=== PATIENT | female | born 2000 | race Caucasian/White ===

== ENCOUNTER 2018-12-30 19:18 | Observation (INO) | payer MEDICAID, SELFPAY ==
[2018-12-30 19:19] VITALS: BP 119/71; PULSE 90; RESP 18; TEMP 36.7; O2SAT 98; BMI 23.2
--- NOTE | 2018-12-30 19:46 | ED.VIS.GEN ---
History of Present Illness Chief Complaint: Abd Pain Informant: Patient, Family Onset: Today Context: Gradual Onset Current Severity: Moderate Maximum Severity: Moderate Narrative: Patient presents with lower abdominal pain that started this morning. It is gradually worsened throughout the day. She points to the area just below the umbilicus. She denies urinary symptoms. She had a bowel movement this morning. She had low-grade fever around 100.0. She did eat this morning but did not eat the remainder the day due to lack of appetite. She has no known history of ovarian cyst. Her last menstrual cycle was 3-1/2 weeks ago. Past Medical History - Allergies and Home Meds Allergies/Adverse Reactions: Allergies No Known Allergies Allergy (Verified 12/30/18 19:21) Prior records reviewed: Yes Past Medical History: None Lives: With Family Smoking Status: Never smoker - Family History Maternal Family History: Reports: No pertinent history Review of Systems General: Reports: Fever ENT: Denies: Sore throat Cardiovascular: Denies: Chest pain Respiratory: Denies: Dyspnea, Cough Gastrointestinal: Reports: Abdominal pain. Denies: Nausea, Vomiting, Diarrhea, Constipation Genitourinary: Denies: Dysuria, Hematuria Neurological: Denies: Headache Psych: Denies: Depression Hematologic: Denies: Easy bleeding Allergy: Denies: Uticaria Physical Exam Vital Signs/Narrative: Vital Signs Temp Pulse Resp BP Pulse Ox 12/30/18 19:19 98.0 F 90 18 119/71 98 Inital Vital Signs reviewed: Yes General: Well nourished, Well developed Eyes: EOMI ENT: Moist mucous membranes Cardiovascular: Regular rate, Regular rhythm Respiratory: No distress, CTA bilaterally Abdomen: Soft, Tender - Patient has moderate tenderness to palpation in the right lower quadrant., Hypoactive bowel sounds. Negative for: Guarding, Rebound tenderness Skin: Normal color Neurological: Alert, Oriented x3 Psychological: Normal affect Diagnostic/Tx/Re-eval Laboratory Results 12/30/18 12/30/18 12/30/18 19:27 19:27 19:50 WBC 16.9 H RBC 4.05 L Hgb 12.9 Hct 36.9 L MCV 91.1 MCH 31.9 MCHC 35.0 RDW Std Deviation 38.7 RDW Coeff of Дмитрий 11.6 Plt Count 285 MPV 9.7 Immature Gran % (Auto) 0.400 Neut % (Auto) 89.0 H Lymph % (Auto) 6.1 L [place] % (Auto) 4.1 Eos % (Auto) 0.2 Baso % (Auto) 0.2 Absolute Neuts (auto) 15.0 H Absolute Lymphs (auto) 1.03 Absolute Nucleated RBC 0.00 Nucleated RBC % 0 Sodium Potassium Chloride Carbon Dioxide Anion Gap BUN Creatinine Estim Creat Clear Calc Est GFR (MDRD) Af Amer Est GFR (MDRD) Non-Af BUN/Creatinine Ratio Glucose Calcium Urine Color Yellow Urine Clarity Clear Urine pH 6.0 Ur Specific [place] 1.015 Urine Protein Negative Urine Glucose (UA) Normal Urine Ketones 150 H Urine Occult Blood Negative Urine Nitrite Negative Urine Bilirubin Negative Urine Urobilinogen 1 H Ur Leukocyte Esterase 25 H Urine RBC 0 SEEN Urine WBC 0-5 SEEN Ur Squamous Epith Cells 5-10 SEEN Urine Bacteria 2+ Urine Mucus 0 SEEN Urine Test Negative 12/30/18 19:50 WBC RBC Hgb Hct MCV MCH MCHC RDW Std Deviation RDW Coeff of Дмитрий Plt Count MPV Immature Gran % (Auto) Neut % (Auto) Lymph % (Auto) [place] % (Auto) Eos % (Auto) Baso % (Auto) Absolute Neuts (auto) Absolute Lymphs (auto) Absolute Nucleated RBC Nucleated RBC % Sodium 149 H Potassium 4.0 Chloride 111 H Carbon Dioxide 25.0 Anion Gap 13 BUN 10 Creatinine 0.73 Estim Creat Clear Calc 92.76 Est GFR (MDRD) Af Amer 129 Est GFR (MDRD) Non-Af 107 BUN/Creatinine Ratio 13.7 Glucose 111 H Calcium 9.1 Urine Color Urine Clarity Urine pH Ur Specific [place] Urine Protein Urine Glucose (UA) Urine Ketones Urine Occult Blood Urine Nitrite Urine Bilirubin Urine Urobilinogen Ur Leukocyte Esterase Urine RBC Urine WBC Ur Squamous Epith Cells Urine Bacteria Urine Mucus Urine Test - Medical Decision Making On presentation, patient's story and physical examination is concerning for appendicitis. Due to to family concerns for no insurance, they asked that I do least work-up possible to find the diagnosis. Therefore blood work and urine were initially sent. White count does come back elevated at 16.9. No other obvious source of infection. On repeat examination patient continues to have focal tenderness to the right lower quadrant. She is given IV fluids but declines anything for pain or nausea. I spoke with surgery on-call. She prefers the patient have imaging studies before going to the OR, therefore CT scan has been ordered. This is been discussed with the patient and family at bedside. This will be signed out to oncoming physician for final follow-up and disposition. ED Disposition - Plan for ED Patient: Disposition: [facility]
[2018-12-30 20:09] LABS: Absolute Lymphocyte Count 1.03 X10^3/uL (0.83-4.51); Basophil# 0.04 X10^3/uL; Basophil% 0.2 % (0-1); Eosinophil# 0.03 X10^3/uL; Eosinophils% 0.2 % (0-5); Hematocrit 36.9 % (37-47); Hemoglobin 12.9 g/dL (12.0-15.0); Lymphocyte # 1.03 X10^3/ul (4.0); Lymphocyte % 6.1 % (19-41); Mean Corpuscular Hgb 31.9 pg (27.0-32.0); Mean Corpuscular Volume 91.1 fL (81-99); Mean Platelet Vol. 9.7 fl (6.2-12.0); Monocyte# 0.69 X10^3/uL; Monocyte% 4.1 % (0-10); NRBC Flagged by Analyzer 0 % (0-5); Neutrophil # 15.02 X10^3/uL (2.7-7.7); Platelet Count 285 K/mm3 (150-450); RBC Distribution Width CV 11.6 % (11.6-14.6); RBC Distribution Width SD 38.7 fl (35.1-43.9); Red Blood Count 4.05 M/mm3 (4.2-5.4); White Blood Count 16.9 K/mm3 (4.4-11.0)
[2018-12-30 20:09] LABS: Mucous, Urine 0 SEEN /hpf (<or=2+); Red Blood Cells-Urine 0 SEEN /hpf (0-5)
[2018-12-30 20:15] LABS: Color, Urine Yellow (Yellow); Glucose, Dipstick Normal (Normal); Leukocyte Esterase-Dipstick 25 /ul (Negative); Nitrite-Dipstick Negative (Negative); Occult Blood-Urine Negative /ul (Negative); Protein-Dipstick Negative (Negative); Specific Gravity, Urine 1.015 (1.002-1.030); Urine Bilirubin Dipstick Negative (Negative); Urine Clarity Clear (Clear); Urine Urobilinogen 1 mg/dl (Normal)
[2018-12-30 20:17] LABS: Ketone-Dipstick 150 mg/dl (Negative)
[2018-12-30 20:18] LABS: Internal QC Validated? YES +Cl - CLEAR BKGD; Pregnancy, Urine Negative Negative
[2018-12-30 20:30] LABS: Anion Gap 13 (5-15); BUN 10 mg/dL (7-18); BUN/Creat Ratio 13.7 RATIO (10-20); Calcium,Total 9.1 mg/dL (8.5-10.1); Chloride 111 mmol/L (98-107); Creatinine, Serum 0.73 mg/dL (0.55-1.02); EST Glomerular Filtration Rate 107 mL/min (>60); Est Glom Filt Rate - Afr Amer 129 mL/min (>60); Estimated Creatinine Clearance 92.76 ml/min; Glucose 111 mg/dL (74-106); Sodium Level 149 mmol/L (136-145)
--- NOTE | 2018-12-30 20:45 | CT_ITS ---
STUDY: CT ABDOMEN AND PELVIS WITH CONTRAST REASON FOR EXAM: Female, 18 years old. Abdominal pain RADIATION DOSAGE (If Supplied By Facility): CTDIvol = ( 8.19 ) mGy, DLP = ( 307.46 ) mGycm TECHNIQUE: Transaxial images were obtained from the dome of the diaphragm to the symphysis pubis without oral contrast. 100 IV/Oral Isovue 300 was administered. Sagittal and coronal images were reconstructed. Individualized dose optimization techniques were used for this CT. COMPARISON: None. FINDINGS: The visualized lung bases are unremarkable. The visualized portions of the heart are within normal limits. Normal liver. Normal gallbladder and extrahepatic biliary system. Normal spleen. Normal pancreas. Normal bilateral adrenal glands. Normal right kidney. Normal left kidney. Normal visualized stomach. Normal small intestine. Normal colon. There is non-visualization of the appendix. There is no evidence of pericecal inflammatory process. Normal abdominal aorta. Normal inferior vena cava. Normal retroperitoneum. Normal urinary bladder. The uterus and adnexal structures are unremarkable. There is a small amount of free fluid in the deep pelvis. There is a tiny fat-containing umbilical hernia. Normal osseous structures. CT/Abdomen/Pelvis WITH Contrast IMPRESSION: 1. There is nonvisualization of the appendix. 2. There is a small amount of free fluid in the deep pelvis. 3. There is a tiny fat-containing umbilical hernia. Electronically Signed: Nicolas Castle MD at 23:08 EDT , Service support ,
[2018-12-30 21:00] LABS: White Blood Cells 0-5 SEEN /hpf (0-5)
[2018-12-30 21:01] LABS: Bacteria 2+ /hpf (None Seen); Squamous Epithelial Cells - UA 5-10 SEEN /hpf (5-10)
--- NOTE | 2018-12-30 23:19 | ED.RN ---
Dr. Martin at bedside.
--- NOTE | 2018-12-30 23:31 | HP.PCM_ITS ---
History of Present Illness Date of Admission: 12/30/18 The patient is a 18 year old F presented to the ER due to lower abdominal pain which started this morning around 11 AM. Patient last ate this morning as she has not had an appetite since. Positive nausea no vomiting positive diarrhea this morning. Patient states her pain is about a 4/10 if she does not move around however if she walks about 8/10. Patient is required no pain meds in the ER. Patient's white blood count is 16.9 with a left shift. Patient CT abdomen pelvis are not able to visualize the appendix however patient is slender. Patient denies any dysuria. 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 Denies: Fever Eyes: Denies: Blurred vision HEENT: Denies: Difficulty Swallowing Cardiovascular: Denies: Chest Pain Respiratory: Denies: Cough Gastrointestinal: Reports: Abdominal Pain, Diarrhea, Nausea. Denies: Vomiting Genitourinary: Denies: Dysuria VTE Information - Inpt Only VTE Present on Admission: Yes VTE Mechan Device Prophylaxis: SCD's VTE Pharm Prophylaxis ordered?: No Reason prophylaxis not ordered:: Medical Contraindication - surgery - Physical Exam General: Alert, Oriented x3, Cooperative Lungs: Normal air movement Cardiovascular: Regular rate Abdomen: Soft, Non-Distended, Tender - Right lower quadrant, mild rebound, no guarding Extremities: No clubbing, No cyanosis, No edema Neurological: Cranial nerves II-XII grossly intact Psych/Mental Status: Normal Affect Vital Signs Temp Pulse Resp BP Pulse Ox 98.0 F 90 18 119/71 98 12/30/18 19:19 12/30/18 19:19 12/30/18 19:19 12/30/18 19:19 12/30/18 19:19 Oxygen Delivery Method Room Air Weight: 123 lb 0.287 oz Body Mass Index (BMI) 23.2 Laboratory Tests Past 24 Hrs 12/30/18 12/30/18 12/30/18 19:27 19:27 19:50 WBC 16.9 H RBC 4.05 L Hgb 12.9 Hct 36.9 L MCV 91.1 MCH 31.9 MCHC 35.0 RDW Std Deviation 38.7 RDW Coeff of Дмитрий 11.6 Plt Count 285 MPV 9.7 Immature Gran % (Auto) 0.400 Neut % (Auto) 89.0 H Lymph % (Auto) 6.1 L [place] % (Auto) 4.1 Eos % (Auto) 0.2 Baso % (Auto) 0.2 Absolute Neuts (auto) 15.0 H Absolute Lymphs (auto) 1.03 Absolute Nucleated RBC 0.00 Nucleated RBC % 0 Sodium Potassium Chloride Carbon Dioxide Anion Gap BUN Creatinine Estim Creat Clear Calc Est GFR (MDRD) Af Amer Est GFR (MDRD) Non-Af BUN/Creatinine Ratio Glucose Calcium Urine Color Yellow Urine Clarity Clear Urine pH 6.0 Ur Specific [place] 1.015 Urine Protein Negative Urine Glucose (UA) Normal Urine Ketones 150 H Urine Occult Blood Negative Urine Nitrite Negative Urine Bilirubin Negative Urine Urobilinogen 1 H Ur Leukocyte Esterase 25 H Urine RBC 0 SEEN Urine WBC 0-5 SEEN Ur Squamous Epith Cells 5-10 SEEN Urine Bacteria 2+ Urine Mucus 0 SEEN Urine Test Negative 12/30/18 19:50 WBC RBC Hgb Hct MCV MCH MCHC RDW Std Deviation RDW Coeff of Дмитрий Plt Count MPV Immature Gran % (Auto) Neut % (Auto) Lymph % (Auto) [place] % (Auto) Eos % (Auto) Baso % (Auto) Absolute Neuts (auto) Absolute Lymphs (auto) Absolute Nucleated RBC Nucleated RBC % Sodium 149 H Potassium 4.0 Chloride 111 H Carbon Dioxide 25.0 Anion Gap 13 BUN 10 Creatinine 0.73 Estim Creat Clear Calc 92.76 Est GFR (MDRD) Af Amer 129 Est GFR (MDRD) Non-Af 107 BUN/Creatinine Ratio 13.7 Glucose 111 H Calcium 9.1 Urine Color Urine Clarity Urine pH Ur Specific [place] Urine Protein Urine Glucose (UA) Urine Ketones Urine Occult Blood Urine Nitrite Urine Bilirubin Urine Urobilinogen Ur Leukocyte Esterase Urine RBC Urine WBC Ur Squamous Epith Cells Urine Bacteria Urine Mucus Urine Test Assessment/Plan 18-year-old female with right lower quadrant pain, leukocytosis, suspect acute appendicitis 1. Did discuss the CT scan with the patient and her sister. Discussed that we are unable to visualize appendix also discussed that since the patient is slender this can happen an acute appendicitis. The rest of patient's story is consistent with acute appendicitis right lower quadrant pain, nausea, anorexia, diarrhea, leukocytosis. Discussed with patient that I recommend a laparoscopic appendectomy. Discussed with patient and her sister that even if her appendix d id appear to be normal I would still plan removing her appendix. Patient will begin Zosyn IV x1 in the ER. Discussed procedure laparoscopic appendectomy, possible open, possible bowel resection along with the risk but not limited to bleeding, infection/abscess, injury to another organ (small bowel, colon, etc.), adhesion, hernia at incision sites, and anesthesia. Patient and her sister had no further questions this time. Patient was agreeable to proceed. Nataliia Martin M.D. Pager: [phone] [facility] [address] [place] [address], [address] [place] [address] Office: [phone]
--- NOTE | 2018-12-30 23:31 | HP.PCM_ITS ---
History of Present Illness Date of Admission: 12/30/18 The patient is a 18 year old F presented to the ER due to lower abdominal pain which started this morning around 11 AM. Patient last ate this morning as she has not had an appetite since. Positive nausea no vomiting positive diarrhea this morning. Patient states her pain is about a 4/10 if she does not move around however if she walks about 8/10. Patient is required no pain meds in the ER. Patient's white blood count is 16.9 with a left shift. Patient CT abdomen pelvis are not able to visualize the appendix however patient is slender. Patient denies any dysuria. 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 Denies: Fever Eyes: Denies: Blurred vision HEENT: Denies: Difficulty Swallowing Cardiovascular: Denies: Chest Pain Respiratory: Denies: Cough Gastrointestinal: Reports: Abdominal Pain, Diarrhea, Nausea. Denies: Vomiting Genitourinary: Denies: Dysuria VTE Information - Inpt Only VTE Present on Admission: Yes VTE Mechan Device Prophylaxis: SCD's VTE Pharm Prophylaxis ordered?: No Reason prophylaxis not ordered:: Medical Contraindication - surgery - Physical Exam General: Alert, Oriented x3, Cooperative Lungs: Normal air movement Cardiovascular: Regular rate Abdomen: Soft, Non-Distended, Tender - Right lower quadrant, mild rebound, no guarding Extremities: No clubbing, No cyanosis, No edema Neurological: Cranial nerves II-XII grossly intact Psych/Mental Status: Normal Affect Vital Signs Temp Pulse Resp BP Pulse Ox 98.0 F 90 18 119/71 98 12/30/18 19:19 12/30/18 19:19 12/30/18 19:19 12/30/18 19:19 12/30/18 19:19 Oxygen Delivery Method Room Air Weight: 123 lb 0.287 oz Body Mass Index (BMI) 23.2 Laboratory Tests Past 24 Hrs 12/30/18 12/30/18 12/30/18 19:27 19:27 19:50 WBC 16.9 H RBC 4.05 L Hgb 12.9 Hct 36.9 L MCV 91.1 MCH 31.9 MCHC 35.0 RDW Std Deviation 38.7 RDW Coeff of Дмитрий 11.6 Plt Count 285 MPV 9.7 Immature Gran % (Auto) 0.400 Neut % (Auto) 89.0 H Lymph % (Auto) 6.1 L [place] % (Auto) 4.1 Eos % (Auto) 0.2 Baso % (Auto) 0.2 Absolute Neuts (auto) 15.0 H Absolute Lymphs (auto) 1.03 Absolute Nucleated RBC 0.00 Nucleated RBC % 0 Sodium Potassium Chloride Carbon Dioxide Anion Gap BUN Creatinine Estim Creat Clear Calc Est GFR (MDRD) Af Amer Est GFR (MDRD) Non-Af BUN/Creatinine Ratio Glucose Calcium Urine Color Yellow Urine Clarity Clear Urine pH 6.0 Ur Specific [place] 1.015 Urine Protein Negative Urine Glucose (UA) Normal Urine Ketones 150 H Urine Occult Blood Negative Urine Nitrite Negative Urine Bilirubin Negative Urine Urobilinogen 1 H Ur Leukocyte Esterase 25 H Urine RBC 0 SEEN Urine WBC 0-5 SEEN Ur Squamous Epith Cells 5-10 SEEN Urine Bacteria 2+ Urine Mucus 0 SEEN Urine Test Negative 12/30/18 19:50 WBC RBC Hgb Hct MCV MCH MCHC RDW Std Deviation RDW Coeff of Дмитрий Plt Count MPV Immature Gran % (Auto) Neut % (Auto) Lymph % (Auto) [place] % (Auto) Eos % (Auto) Baso % (Auto) Absolute Neuts (auto) Absolute Lymphs (auto) Absolute Nucleated RBC Nucleated RBC % Sodium 149 H Potassium 4.0 Chloride 111 H Carbon Dioxide 25.0 Anion Gap 13 BUN 10 Creatinine 0.73 Estim Creat Clear Calc 92.76 Est GFR (MDRD) Af Amer 129 Est GFR (MDRD) Non-Af 107 BUN/Creatinine Ratio 13.7 Glucose 111 H Calcium 9.1 Urine Color Urine Clarity Urine pH Ur Specific [place] Urine Protein Urine Glucose (UA) Urine Ketones Urine Occult Blood Urine Nitrite Urine Bilirubin Urine Urobilinogen Ur Leukocyte Esterase Urine RBC Urine WBC Ur Squamous Epith Cells Urine Bacteria Urine Mucus Urine Test Assessment/Plan 18-year-old female with right lower quadrant pain, leukocytosis, suspect acute appendicitis 1. Did discuss the CT scan with the patient and her sister. Discussed that we are unable to visualize appendix also discussed that since the patient is slender this can happen an acute appendicitis. The rest of patient's story is consistent with acute appendicitis right lower quadrant pain, nausea, anorexia, diarrhea, leukocytosis. Discussed with patient that I recommend a laparoscopic appendectomy. Discussed with patient and her sister that even if her appendix did appear to be normal I would still plan removing her appendix. Patient will begin Zosyn IV x1 in the ER. Discussed procedure laparoscopic appendectomy, possible open, possible bowel resection along with the risk but not limited to bleeding, infection/abscess, injury to another organ (small bowel, colon, etc.), adhesion, hernia at incision sites, and anesthesia. Patient and her sister had no further questions this time. Patient was agreeable to proceed. Nataliia Martin M.D. Pager: [phone] [facility] [address] [place] [address], [address] [place] [id number] Office: [phone]
--- NOTE | 2018-12-30 23:40 | APP_PTH ---
PATIENT: NICKY HERMOSILLO LOC: MS3 U#:[id number] AGE/SX: 18/F ROOM: MS314 RE12/31/[address]: Dr. Nataliia Martin MD : 2000 BED: 1 DIS: 12/31/2018 SPEC #: [id number] RECD: 12/31/18 07:57 STATUS: SOUT REQ #: [id number] [place]: 12/30/18 23:[address]: Nataliia Martin DEPT: SURGICAL PATHOLOGY RECD BY: Kit Barry ENTERED: 12/31/18 08:20 SP TYPE: APPENDIX OTHR DR: Dr. Sanjuana Lucio MD Tissues: Appendix, NOS Procedures: Surgery Specimen Level III Comments: @ Originally on account #[id number] Req #[id number] HEADER OPERATION: Laparoscopic appendectomy PRE-OP DIAGNOSIS: Right lower quadrant pain, suspected appendicitis TISSUE SUBMITTED: Appendix MICROSCOPIC DIAGNOSIS Appendix, appendectomy: Acute appendicitis and periappendicitis. XANDER:tisha 01/01/19 MICROSCOPIC DESCRIPTION Slides are reviewed. GROSS DESCRIPTION Received is one container labeled with the patient's name and designated appendix. The specimen consists of a C-shaped appendix measuring 6.5 cm in length and up to 1 cm in diameter. The attached periappendiceal adipose tissue measures up to 0.5 cm in width. The serosa is covered with gaona, purulent exudate. No obvious perforation is identified. The lumen is pin point. No fecalith is identified. Spot Worker sections are submitted in one cassette. / XANDER:tisha 12/31/18 TC:2 CPT: 08648
[2018-12-30 23:44] VITALS: BP 130/79; PULSE 86; RESP 16; TEMP 36.9; O2SAT 100; BMI 23.2
[2018-12-30 23:50] VITALS: BP 130/79; PULSE 86; RESP 18; O2SAT 100
[2018-12-31] VITALS (7 sets, daily range): BP systolic 98–130; BP diastolic 54–79; PULSE 76–108; RESP 16–18; TEMP 36.4–36.9; O2SAT 98–100; BMI 22.8; BMI 22.9
--- NOTE | 2018-12-31 01:06 | OP.PCM_ITS ---
Report of Operation Date of Procedure: 12/31/18 Pre-Operative Diagnosis: Right lower quadrant pain, leukocytosis, suspected acute appendicitis Post-Operative Diagnosis: Acute appendicitis Surgery/Procedure Performed:: Laparoscopic appendectomy Type of Anesthesia:: General/Supplemental Anesthesiologist: Marta Dean Special Medications: Zosyn 4.5 g IV x1 Specimen's removed: Appendix Estimated Blood Loss (mL): <10 cc Fluids Replaced: 1000 cc Description of Procedure: Indications: 18-year-old female presented to the ER with new right lower quadrant pain this morning. On workup she was found to have right lower quadrant pain, leukocytosis of 16.9, history consistent with acute appendicitis, CT showed nonvisualization of the appendix. Patient was given preoperative antibiotics for acute appendicitis-Zosyn 4.5 g IV x1 Description of the procedure: The patient was placed on operating table in supine position. General anesthesia was induced. A timeout was completed verifying correct patient, procedure, position and special equipment prior to beginning procedure. Abdomen was prepped and draped in usual sterile fashion. Incision was made in the natural skin line below the umbilicus with a 15 blade scalpel. The fascia was elevated and incised. Entry into the peritoneum was confirmed visually and no bowel was noted in the vicinity of the incision. The Mane trocar was placed under direct vision. Abdomen insufflated with a pressure of 12-15 mmHg. Patient tolerated insertion well. The scope was inserted and the abdomen inspected. No injuries from initial trocar placement were noted. Minimal amount of purulent fluid was seen in the right lower quadrant. An direct visualization 2 -5 mm trocars were placed one above the symphysis pubis and below the hairline and one in the left lower quadrant lateral to the rectus muscle. Care is taken to avoid injury to the b ladder and inferior epigastric vessels. The table was placed in Trendelenburg position with the right side elevated. The appendix was grasped with atraumatic grasper and elevated. It was noted to be inflamed. A window was developed in the mesoappendix at the point between the base of the appendix and the cecum. An endoscopic 45 mm linear cutting stapler blue load was then used to divide and staple the base of the appendix. The Enseal was used to divide the mesoappendix. The appendix was withdrawn into the Mane trocar after being placed endoscopically retrieval bag. Appendix was sent to pathology. The appendiceal stump staple line and a small amount of oozing. A couple 5 mm clips were placed at the site of oozing on the staple line. The staple line was then irrigated and hemostasis was assured. Fluid was suctioned no other pathology was identified. Secondary trochars were removed under direct visualization. No bleeding was noted trocar sites. The laparoscope withdrawn and the umbilical trocar removed. The abdomen was allowed to collapse. Local anesthesia of 15 mL of 0.5% Marcaine was used at the incision sites. The umbilical trocar site was closed with the [id number] 0 Vicryl suture. The skin was closed up to clear sutures of 4-0 Monocryl and Steri-Strips. The patient was extubated. The patient tolerated the procedure well and was taken to the postanesthesia care unit in satisfactory condition. - Complications none
[2018-12-31] MEDS: Acetaminophen 325 MG Tablet 650 MG PO (02:40)
--- NOTE | 2018-12-31 08:26 | PCM.PN.SRG ---
Subjective: Patient currently eating breakfast, denies any need for pain meds, denies any nausea or vomiting - Physical Exam General: Alert, Oriented x3, Cooperative, No apparent distress HEENT: Atraumatic Lungs: Normal air movement Cardiovascular: Regular rate Abdomen: Soft, Non-Distended, Tender - Appropriate incisions dry and intact with OpSite, no peritoneal signs Extremities: No clubbing, No cyanosis, No edema Neurological: Cranial nerves II-XII grossly intact Vital Signs Temp Pulse Resp BP Pulse Ox 97.6 F L 82 16 116/59 L 99 12/31/18 06:46 12/31/18 06:46 12/31/18 06:46 12/31/18 06:46 12/31/18 06:46 Oxygen Delivery Method Room Air Weight: 121 lb 4.068 oz Body Mass Index (BMI) 22.8 Intake and Output for Last 24 Hours 12/29/18 12/30/18 12/31/18 23:59 23:59 23:59 Intake Total 978 / 978 Output Total 300 / 300 Balance 678 / 678 Medical Necessity - Tobacco Use Smoking Status: Never smoker Assessment/Plan Patient is doing well currently eating breakfast if tolerates okay to DC home. Nataliia Martin M.D. Pager: [phone] [facility] [address] [place] [address], [facility], [address] [place] [id number] Office: [phone]
--- NOTE | 2018-12-31 08:27 | DCINST_ITS ---
Discharge Diet: Light diet - advance as tolerated Discharge Activity: - - No driving if you have too much pain abdomen acute slam on the brakes if need be May shower in (days): 1 - 24 hours from surgery Lifting Restrictions: No lifting > 20 pounds for 2 weeks, no strenuous exercise for 6 wks Call your doctor if your incision/area has: Continuous Slow Oozing, Sudden Increased Bleeding, Increased Pain/ Swelling, Increased Redness, Foul Smelling Discharge, Swelling at the incision site Call your doctor if you observe: Fever of 101 or Higher Additional Instructions: Okay to alternate ibuprofen 200-600 mg p.o. every 6 hours as needed with Tylenol. Take all pain meds with food. If no bowel movement in 2 days okay to take some MiraLAX. Medications to take at Discharge NK 12/30/18 Allergies/Adverse Reactions: Allergies No Known Allergies Allergy (Verified 12/30/18 19:21) Primary Care Physician: Sanjuana Lucio [Primary Care Provider] - Test Results: Test results from this visit will be discussed in further detail at your follow- up appointment, if applicable. Please Follow Up With: Nataliia Martin MD - After 5 PM/weekends call [phone] with any concerns When: Call the office for follow-up appointment in 2 weeks. [phone] Proposed Discharge Date: 12/31/18
== END 2018-12-31 09:50 | disposition home or self-care (01) ==
LOC: MS3 12-31 03:33 → ED 12-31 16:02 → MS3 12-31 16:02
PROVIDERS: Admitting Provider Surgery; Emergency Provider Emergency Medicine; Family Provider Family Medicine; PCP Family Medicine; Referring Provider Surgery; Visit Provider Surgery
PROC: 0DTJ4ZZ Resection of Appendix, Percutaneous Endoscopic Approach (ICD-10-PCS; CPT 44970; principal; 2018-12-30 23:40)
DX: K35.80 Unspecified acute appendicitis (principal)
CPT/HCPCS: 00840; 44970; 74177; 80048; 81001; 81025; 85025; 88304; 99218; 99285; J7030; Q9967; A4216; G0378; J2405